=== PATIENT | male | born 1970 | race Two or more races ===

== ENCOUNTER 2019-08-10 17:01 | Emergency (ER) | payer MEDICAID ==
[~2019-08-10] VITALS: Ht 182.9 cm; Wt 134.4 kg
[~2019-08-10 17:01] MED LIST: HYDR-4383 PO; INSU100V36 SQ; LANTUS SQ; ONDA4TAB6 PO
[2019-08-10] MEDS ORDERED: CYCL-1 PO (18:14)
[2019-08-10 20:17] VITALS: BP 141/89
== END 2019-08-10 20:18 | disposition home or self-care (01) ==
LOC: ER 17:02
DX: H11.32 Conjunctival hemorrhage, left eye (principal); M25.532 Pain in left wrist; M25.512 Pain in left shoulder; M62.838 Other muscle spasm; E11.9 Type 2 diabetes mellitus without complications; Z79.4 Long term (current) use of insulin; Z79.899 Other long term (current) drug therapy; W18.39XA Other fall on same level, initial encounter; Y93.89 Activity, other specified; Y92.89 Other specified places as the place of occurrence of the external cause; Y99.8 Other external cause status
CPT/HCPCS: 29125; 73030; 73110; 99284